=== PATIENT | male | born 1950 | race Caucasian/White ===

== ENCOUNTER → 2021-02-27 13:25 | Outpatient (BNVA) | payer MEDICARE, OTHER, SELFPAY | PROVIDERS: PCP Internal Medicine; Visit Provider Internal Medicine | DX: E66.9 Obesity, unspecified (principal); G47.33 Obstructive sleep apnea (adult) (pediatric); Z99.89 Dependence on other enabling machines and devices; J45.909 Unspecified asthma, uncomplicated | CPT/HCPCS: 99212 ==

== ENCOUNTER 2021-03-19 09:45 | Outpatient (REF) | payer MEDICARE, OTHER, SELFPAY ==
--- NOTE | ~2021-03-19 | US_ITS ---
EXAMINATION: US RETROPERITONEAL LIMITED (AORTA) CLINICAL INFORMATION: Abdominal aortic aneurysm. COMPARISON: Abdominal aorta aneurysm dated 12/22/2019. TECHNIQUE: Grayscale, color Doppler and spectral Doppler evaluation of the abdominal aorta. Technically difficult study secondary to body habitus. FINDINGS: There is an aneurysm of the distal abdominal aorta just above the bifurcation. This measures 5.3 x 4.6 cm in AP and transverse dimension compared to 4.7 x 4.5 cm on previous exam. There is intraluminal thrombus. The measurements of the aorta in maximum AP and transverse dimensions respectively are as follows: PROXIMAL: 3.3 x 3.7 cm. MID: 2.5 x 3.4 cm. PSV: 27.0 cm/sec. DISTAL: 3.1 x 2.8 cm. above the aneurysm. There are 2 aneurysms or areas of dilatation of the left common iliac artery measuring 2.2 x 2.4 cm and 1.9 x 2.2 cm non-appreciably changed. The measurements of the common iliac arteries are as follows: AP: Right: 1.6 cm. Left: 1.3 cm. TRANS: Right: 1.6 cm. Left: 1.4 cm. 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 Findings were indicated to Dr. Castro the technologist at the lesion of the exam by telephone on 05/01/2021..
== END 2021-03-19 09:46 | disposition home or self-care (01) ==
LOC: HO.US 09:45
PROVIDERS: PCP Internal Medicine; Visit Provider Internal Medicine
DX: I71.4 Abdominal aortic aneurysm, without rupture (principal)
CPT/HCPCS: 76706

== ENCOUNTER → 2021-04-10 09:14 | Outpatient (BNVA) | payer MEDICARE, OTHER, SELFPAY | PROVIDERS: PCP Internal Medicine; Referring Provider Internal Medicine; Visit Provider Surgery | DX: L98.9 Disorder of the skin and subcutaneous tissue, unspecified (principal); Z85.828 Personal history of other malignant neoplasm of skin | CPT/HCPCS: 99202 ==

== ENCOUNTER 2021-04-27 12:38 | Outpatient (REF) | payer MEDICARE, OTHER, SELFPAY ==
[2021-04-27 12:47] VITALS: BP 178/81; PULSE 69; RESP 18; TEMP 36.6; O2SAT 95; BMI 36.9
--- NOTE | 2021-04-27 13:38 | P.OP_ITS ---
Operative Note Operative Note Date of Service: 04/27/21 Narrative: Preoperative diagnosis: Skin lesions right shoulder, right hand, right abdominal wall, and left neck Postoperative diagnosis: Same Procedure: Excision of skin lesions right shoulder, right hand, right abdominal wall, left neck Surgeon: Jensen Sarabia MD Photographer Portrait: No physician Anesthesia: Local lidocaine 1% with epinephrine Indications for procedure: 71-year-old male patient with history of squamous cell carcinoma presenting with 4 new lesions suggestive of skin neoplasms including a 1 cm lesion in the right shoulder 1.5 cm lesion in the right abdomen wall, 1 cm lesion of the right wrist over the 5th metacarpal on the dorsal surface, and 1 cm lesion in the left neck Operative findings: Lesions as noted above Specimen: Skin lesion right shoulder, right hand, right abdominal wall, left neck Estimated blood loss: 5 mL Complications: None Procedure details: Patient was brought to the minor surgery suite placed in a supine position. The patient confirmed the site of the skin lesions as noted above. Informed consent was confirmed. Skin was prepped with Betadine over the 4 regions and draped in a sterile fashion. Local anesthesia was infiltrated over each of the 4 lesions. Beginning in the right shoulder elliptical incision oriented in the longitudinal fashion was created. This was carried down through subcutaneous tissue and around the lesion. The lesion was completely excised and sent to pathology as a separate specimen. Skin was then closed using interrupted 4-0 nylon sutures. Attention was then directed to the right hand lesion which again an elliptical incision was created around the lesion and carried out through subcutaneous tissue and around the lesion. The lesion was passed off the table and sent to pathology as a separate specimen. Skin was then closed using interrupted 4-0 nylon sutures. Attention was then directed to the right lower quadrant abdominal wall. An elliptical incision was created oriented transversely around the lesion with a 2 mm margin. Incision was carried out through subcutaneous tissue and around the lesion completely. Skin was then closed using interrupted 4-0 nylon sutures. Next an elliptical incision was created around the lesion in the left neck. This was carried down to subcutaneous tissue around the lesion completely. This was passed off table sent as a pathology specimen. Skin was then closed using a 4-0 nylon suture in interrupted fashion. Sterile dressings were then applied to all 4 lesions including Tegaderm to the shoulder, abdominal, and left neck lesion. A Band-Aid was applied to the hand lesion. The patient tolerated the procedure well. Sponge, instrument, needle counts were reported as correct. The patient was discharged home in stable condition.
--- NOTE | 2021-04-27 13:45 | MHC.SHP ---
Pre-Procedural Eval Section A Date of Service: 04/27/21 The patient is an INPATIENT: No Changes since office visit: No Cold of Flu in the past 2 weeks, No New Medical Problems, No Changes in Medication and No Patient answered all questions The History & Physical has been completed within 30 days and I have reviewed it.: Yes Section B Chief Complaint: Squamous cell carcinoma of skin, unspecified Allergies: Allergies Allergy/AdvReac Type Severity Reaction Status Date / Time morphine [MORPHINE] Allergy Intermediate RASH Verified 02/27/21 13:40 SEASONAL ALLERGIES Allergy Mild SNEEZING; Uncoded 06/29/20 14:54 ITCHY EYES Plan Diagnosis/Plan: Unchanged I have reviewed the history and physical and performed a pertinent physical examination on my patient. No changes have occurred unless specified.
== END 2021-04-27 12:39 | disposition home or self-care (01) ==
LOC: HO.MS 12:38
PROVIDERS: PCP Internal Medicine; Visit Provider Surgery
PROC: (CPT 11603; principal; 2021-04-27 13:00)
DX: D04.5 Carcinoma in situ of skin of trunk (principal); D23.61 Other benign neoplasm of skin of right upper limb, including shoulder; L82.0 Inflamed seborrheic keratosis; L82.1 Other seborrheic keratosis; G47.33 Obstructive sleep apnea (adult) (pediatric); Z79.899 Other long term (current) drug therapy
CPT/HCPCS: 11603; 11402; 11422; 11421; 88305; 88342

== ENCOUNTER → 2021-05-04 10:53 | Outpatient (BNVA) | payer MEDICARE, OTHER, SELFPAY | PROVIDERS: PCP Internal Medicine; Visit Provider Surgery | DX: Z48.3 Aftercare following surgery for neoplasm (principal); Z85.828 Personal history of other malignant neoplasm of skin | CPT/HCPCS: 99212 ==

== ENCOUNTER 2021-06-04 10:29 | Outpatient (REF) | payer MEDICARE, OTHER, SELFPAY ==
[2021-06-04 10:58] LABS: Estimated Average Glucose 160 mg/dL; Hemoglobin A1c % 7.2 %
[2021-06-04 11:05] LABS: Alanine Aminotransferase 77 U/L (0-40); Albumin Level 3.5 g/dL (3.5-5.0); Alkaline Phosphatase 109 U/L (39-117); Aspartate Amino Transferase 86 U/L (5-37); Bilirubin Direct 0.4 mg/dL (0.0-0.5); Bilirubin Total 1.1 mg/dL (0.0-1.0); Cholesterol 120 mg/dL; Glucose Fasting 157 mg/dL (60-99); HDL Cholesterol 33 mg/dL; LDL Cholesterol Calculated 72 mg/dl; Total Protein 7.6 g/dL (6.5-8.0); Triglycerides 77 mg/dL
[2021-06-04 11:32] LABS: Reflex LDLD? No
== END 2021-06-04 10:30 | disposition home or self-care (01) ==
LOC: HO.LNP 10:29
PROVIDERS: Visit Provider Internal Medicine
DX: I25.10 Atherosclerotic heart disease of native coronary artery without angina pectoris (principal); E11.9 Type 2 diabetes mellitus without complications
CPT/HCPCS: 80061; 80076; 82947; 83036

== ENCOUNTER 2021-12-04 10:27 | Outpatient (REF) | payer MEDICARE, OTHER, SELFPAY ==
[2021-12-04 10:31] LABS: MANUAL DIFF FLAG NO
[2021-12-04 10:54] LABS: Basophils Absolute Auto 0.1 X10*3/uL (0.0-0.2); Basophils Percent Auto 1.5 % (0-2); Eosinophils Absolute Auto 0.1 X10*3/uL (0.0-0.4); Eosinophils Percent Auto 1.9 % (0-4); Hematocrit 47.3 % (42.0-52.0); Hemoglobin 15.4 g/dl (14.0-18.0); Imm Gran Abs Auto 0.01 X10*3/uL (0.00-0.03); Imm Gran Pct Auto 0.1 % (0.0-0.4); Lymphocytes Absolute Auto 1.9 X10*3/uL (1.2-4.9); Lymphocytes Percent Auto 28.2 % (20-40); Mean Corpuscular HGB Conc 32.6 g/dl (31.0-36.0); Mean Corpuscular Hemoglobin 30.9 pg (27.0-33.0); Mean Corpuscular Volume 94.8 fL (80.0-98.0); Mean Platelet Volume 11.9 fL (9.4-12.4); Monocytes Absolute Auto 0.9 X10*3/uL (0.1-1.2); Monocytes Percent Auto 13.8 % (2-11); Neutrophils Absolute Auto 3.6 x10*3/uL (2.0-8.3); Neutrophils Percent Auto 54.5 % (45-73); Platelet Count 186 X10*3/uL (160-400); Red Blood Count 4.99 X10*6/uL (4.60-5.80); Red Cell Distribution Width 13.2 % (11.0-16.0); White Blood Count 6.7 X10*3/uL (4.8-10.8)
[2021-12-04 10:59] LABS: Estimated Average Glucose 186 mg/dL; Hemoglobin A1c % 8.1 %
[2021-12-04 11:01] LABS: Appearance Urine CLEAR; Color Urine YELLOW; Glucose Urine UA NEG (NEG); Leukocyte Esterase Urine NEG (NEG); Nitrite Urine NEG (NEG); Specific Gravity - Urine 1.025 (1.005-1.025); Urine Blood NEG (NEG); Urine Ketones NEG (NEG); Urine Protein NEG (NEG-TRACE)
[2021-12-04 11:12] LABS: Alanine Aminotransferase 52 U/L (0-40); Albumin Level 3.9 g/dL (3.5-5.0); Alkaline Phosphatase 100 U/L (39-117); Anion Gap 13 (12-20); Aspartate Amino Transferase 43 U/L (5-37); Blood Urea Nitrogen 14 mg/dL (9-16); Calcium 9.6 mg/dL (8.4-10.2); Carbon Dioxide 29 mmol/L (22-29); Chloride 99 mmol/L (96-108); Cholesterol 121 mg/dL; Estimated Glomerular Filt Rate 60; Glucose Fasting 148 mg/dL (60-99); HDL Cholesterol 40 mg/dL; LDL Cholesterol Calculated 67 mg/dl; Potassium 4.1 mmol/L (3.3-5.1); Sodium 137 mmol/L (135-145); Total Protein 8.1 g/dL (6.5-8.0); Triglycerides 74 mg/dL
== END 2021-12-04 10:28 | disposition home or self-care (01) ==
LOC: HO.LNP 10:27
PROVIDERS: PCP Internal Medicine; Visit Provider Internal Medicine
DX: I10 Essential (primary) hypertension (principal); R79.89 Other specified abnormal findings of blood chemistry; E11.9 Type 2 diabetes mellitus without complications; N40.0 Benign prostatic hyperplasia without lower urinary tract symptoms
CPT/HCPCS: 80053; 80061; 81003; 83036; 85025

== ENCOUNTER → 2021-12-26 13:01 | Outpatient (BNVA) | payer MEDICARE, OTHER, SELFPAY | PROVIDERS: PCP Internal Medicine; Referring Provider Internal Medicine; Visit Provider Internal Medicine Cardiovascular Disease | DX: Z01.810 Encounter for preprocedural cardiovascular examination (principal); I71.4 Abdominal aortic aneurysm, without rupture | CPT/HCPCS: 93005; 99202 ==

== ENCOUNTER → 2021-12-31 07:22 | Outpatient (REF) | payer MEDICARE, OTHER, SELFPAY ==
--- NOTE | ~2021-12-31 | NM_ITS ---
Lexiscan Myocardial perfusion study Indication: Preoperative cardiac evaluation Technique: The patient was brought in for a Lexiscan perfusion study on 01/02/2022 and was injected 0.4 mg of Lexiscan intravenously. Within a minute of this injection 40 mCi of sestamibi was given intravenously. Images were obtained using the SPECT gamma camera interlaced with the gating device. Images were obtained in supine position. Resting perfusion study was performed on 01/03/2022. Patient was administered 40 mCi of sestamibi intravenously at rest. Images were then obtained in supine position. Total DLP 132mGy-cm. Images were processed with the software and compared side to side in short axis, horizontal long axis and vertical long axis views. Findings: Raw acquisition was reviewed. The stress perfusion study showed diminished tracer uptake along the distal part of lateral/inferolateral wall. With CT attenuation correction, there is partial improvement uptake but it does not completely normalize. The gated study shows normal LV systolic function with calculated LVEF of 59%. LV cavity is normal in size. The gated study shows reduced contractility in the inferolateral wall towards the distal part. Resting study shows diminished tracer uptake in the distal part of lateral/inferolateral wall. There is some improvement with CT attenuation correction but does not resolve completely. Gating at rest reveals distal lateral hypokinesis with ejection fraction of 68%. The findings are consistent with no reversible defects. Distal inferolateral/lateral fixed defect. NM/NM bibi perf SPECT rest & str Impression: 1. Myocardial perfusion imaging study shows no ischemia. Distal inferolateral/lateral infarct. 2. Gated LVEF is 59% during stress and 68% during rest. 3. Transient ischemic dilatation not present. EKG component of the test reported separately.
--- NOTE | 2021-12-31 07:34 | CA_ITS ---
Transthoracic Echocardiogram Patient (Last, First, Middle): Amauri Bansal A Gender: Male Date of : 1950 Age: 71 Procedure Date: 12/31/2021 Procedure Type: Transthoracic Echocardiogram Location: OP Height: 175.26 cm Weight: 108.86 kg BSA: 2.23 m2 Heart Rate: bpm BP: 142 / 90 mmHg Boiler Or Engine Operator: THERESA Referring MD: Shahram Liu MD Symptoms: Z01.810 - Encounter for preprocedural cardiovascular exam... Study Quality: Fair ECG Rhythm: Sinus Conclusions: - The left ventricular systolic function is normal. The calculated ejection fraction is 60% by biplane method. - There is mild calcification of the aortic valve. - There is mild mitral annular calcification. Findings Left Ventricle Normal left ventricular cavity size. There is mildly increased left ventricular wall thickness. The left ventricular systolic function is normal. The calculated ejection fraction is 60% by biplane method. There is no evidence of regional wall motion abnormalities. Diastolic function is normal for age. Right Ventricle Normal right ventricular cavity size and systolic function. Atria Both atria are normal in size. Aortic Valve There is a normal trileaflet aortic valve. There is mild calcification of the aortic valve. There is no aortic valve stenosis. There is no aortic valve regurgitation. Mitral Valve There is mild mitral annular calcification. There is no mitral valve regurgitation. There is no mitral valve stenosis. Pulmonic Valve The pulmonic valve was not well visualized. Tricuspid Valve There is trace tricuspid valve regurgitation. The pulmonary artery systolic pressure is normal. Great Vessels The asc aorta is normal in size. Venous The inferior vena cava is normal in size and collapses greater than 50% with inspiration. Pericardium/Pleural There is no evidence of pericardial effusion. Prior Study Comparison No prior study available for comparison. Measurements 2D Linear Measurements IVSd: 1.40 0.6-0.9/0.6-1.0 cm LVIDd: 5.13 3.9-5.3/4.2-5.9 cm LVIDd Index: 2.30 2.4-3.2/2.2-3.1 cm/m2 LVIDs: 3.50 2.0-3.6 cm LVPWd: 1.16 0.7-1.1 cm LA Diam: 4.20 2.7-3.8/3.0-4.0 cm LAIDs Index: 1.88 1.5-2.3 cm/m2 LV Mass: 332.54 67-162/88-224 g LV Mass Index: 149.12 43-95/49-115 g/m2 LVOT Diam: 2.10 3.0+(-)1.3 cm 2D Systolic Function EF 4C: 64.80 >55% EF 2C: 55.50 >55% EF BiP: 60.30 >55% Mitral Valve MV Pk E: 0.83 MV PK A: 1.13 MV Decel Time: 241.00 E/A: 0.70 E'Lateral: 8.27 E'Medial: 5.66 E/E' Med: 14.70 E/E' Lat: 10.10 PHT: 71.00 MVA PHT: 3.10 Decel [place]: 3.45 Aortic Valve AoV Pk Doug: 1.73 AoV Mn Doug: 1.19 AoV VTI: 0.39 AoV Pk Grad: 12.00 Aov Mn Grad: 6.00 [place] Cont.VTI: 2.47 LVOT LVOT Pk Doug: 1.20 LVOT Mn Doug: 0.86 LVOT VTI: 0.28 LVOT Pk Grad: 6.00 LVOT Mn Grad: 3.00 LVOT Diam: 2.10 LVOT Area: 3.46 Diastolic Function MV Pk E: 0.83 MV Pk A: 1.13 E/A: 0.70 E'Medial: 5.66 E/E' Med: 14.70 E' Laterial: 8.27 E/E' Lat: 10.10 Right Ventricle TAPSE (mm): 2.09 TVS' Doug: 15.30 Tricuspid Valve TR Pk Doug: 2.12 TR Pk Grad: 18.00 RA Press: 3.00 RVSP: 21.00 Great Vessels Aorta Sinus of Valsalva: 3.39 2.0-3.[address] [place]: 2.90 1.7-3.4 cm Ao Asc: 3.60 2.1-3.4 cm Updated in Other Vendor System with Status of Final Beto Doe MD electronically signed on 12/31/2021 4:57:51 PM with status of Final
== END ==
LOC: HO.CARD 07:22
PROVIDERS: Visit Provider Internal Medicine Cardiovascular Disease
DX: Z01.810 Encounter for preprocedural cardiovascular examination (principal)
CPT/HCPCS: 93306

== ENCOUNTER → 2022-01-02 07:47 | Outpatient (REF) | payer MEDICARE, OTHER, SELFPAY ==
--- NOTE | 2022-01-02 07:49 | CA_ITS ---
Acquisition Time: 2022-01-02 08:05:31 Total Exercise Time: 00:02:00 Test Indications: Screening for CAD Medications: VALSARTAN/HCTZ ATORVASTATIN OMEPRAZOLE Protocol: LEXISCAN Max HR: 110 BPM 73% of Pred: 149 BPM Max BP: 152/088 mmHG Max Work Load: 1.6 METS Pharmacological stress test with Lexiscan injection, while walking on treadmill, without anginal symptoms, with frequent PACs and rare PVC, wth normotensive response to injection, with nondiagnostic EKG for ischemia. Nuclear images pending. Test reviewed wt Dr Zapien. Referred By: Shahram Liu Overread By: TIEN GRIFFIN
== END ==
LOC: HO.CARD 07:47
PROVIDERS: PCP Internal Medicine; Visit Provider Internal Medicine Cardiovascular Disease
DX: Z01.810 Encounter for preprocedural cardiovascular examination (principal)
CPT/HCPCS: 78452; 93017; A9500; J0280; J2785

== ENCOUNTER → 2022-01-03 | Outpatient (REF) | payer MEDICARE, OTHER, SELFPAY | LOC: HO.NUCMED | PROVIDERS: Visit Provider Internal Medicine | DX: Z01.810 Encounter for preprocedural cardiovascular examination (principal) | CPT/HCPCS: 78452; A9500 ==

== ENCOUNTER → 2022-02-25 09:51 | Outpatient (BNVA) | payer MEDICARE, OTHER, SELFPAY | PROVIDERS: PCP Internal Medicine; Visit Provider Internal Medicine | DX: G47.33 Obstructive sleep apnea (adult) (pediatric) (principal); J45.909 Unspecified asthma, uncomplicated; E66.9 Obesity, unspecified; Z99.89 Dependence on other enabling machines and devices; Z68.34 Body mass index [BMI] 34.0-34.9, adult | CPT/HCPCS: 99212 ==